=== PATIENT | male | born 2000 | race Caucasian/White ===

== ENCOUNTER 2022-05-21 00:28 | Emergency (ER) | payer OTHER ==
--- NOTE | 2022-05-21 01:07 | ED Physician Documentation ---
PD HPI HEAD INJURY - Stated complaint Stated Complaint: HEAD INJ - Chief complaint Chief Complaint: Trauma Hd/Nk - History obtained from History obtained from: Patient - History of Present Illness Mechanism of head injury: Blow Where head injury occurred: Other (GYM) Timing - onset: Today Location of injury: Right, Front Quality of pain: Pain Associated symptoms: Nausea / vomiting, Other (headache is mild. nausea has resolved). No: LOC, AMS, Amnesia, Neck pain, Paresthesias, Seizures, Ear drainage, Nasal drainage Symptoms worsen with: Palpation Contributing factors: No: Anticoagulated Similar symptoms before: Diagnosis (concussion) Recently seen: Not recently seen - Additional information Additional information: 21-year-old Scott Kelly is an [employer] male who was at the gym this evening using a 25 pound dumbbell when his arm collapsed and the dumbbell hit him in the right side of the forehead. He felt dazed had slight nausea and dizziness which has resolved. He did not have LOC. He states that he has mild pain associated with this but that he no longer has nausea or dizziness. He has had 1 prior concussion in high school that resulted in a brief period of ataxia. Review of Systems Constitutional: denies: Fever Eyes: denies: Decreased vision Ears: denies: Ear pain Nose: denies: Rhinorrhea / runny nose, Congestion Throat: denies: Sore throat Cardiac: denies: Chest pain / pressure Respiratory: denies: Dyspnea, Cough GI: reports: Nausea (resolved). denies: Abdominal Pain, Vomiting, Constipation, Diarrhea : denies: Dysuria, Frequency Skin: denies: Rash Musculoskeletal: denies: Neck pain, Back pain, Extremity pain Neurologic: denies: Generalized weakness, Focal weakness, Numbness PD PAST MEDICAL HISTORY - Present Medications Home Medications: Ambulatory Orders Medication Instructions Recorded Confirmed No Known Home Medications 05/21/22 05/21/22 - Allergies Allergies/Adverse Reactions: Allergies Allergy/AdvReac Type Severity Reaction Status Date / Time No Known Drug Allergies Allergy Verified 05/21/22 00:36 PD ED PE NORMAL - Vitals Vital signs reviewed: Yes (hypertensive mild ) - General General: Alert and oriented X 3, No acute distress, Well developed/nourished - HEENT HEENT: PERRL, EOMI, Other (There is swelling and ecchymosis to the right bahai without crepitance or step-off. Area is mildly tender. There is no laceration to the skin.) - Neck Neck: Supple, no meningeal sign, No bony TTP - Cardiac Cardiac: RRR, No murmur - Respiratory Respiratory: No respiratory distress, Clear bilaterally - Derm Derm: Normal color, No rash - Extremities Extremities: No deformity, Normal ROM s pain, No edema - Neuro Neuro: Alert and oriented X 3, No motor deficit, No sensory deficit, Normal speech Eye Opening: Spontaneous Motor: Obeys Commands Verbal: Oriented GCS Score: 15 - Psych Psych: Normal mood, Normal affect Results - Vitals Vitals: Vital Signs - 24 hr 05/21/22 00:30 Temperature 36.0 C L Heart Rate 87 Respiratory 16 Rate Blood Pressure 144/72 H O2 Saturation 98 Oxygen O2 Source Room air PD Medical Decision Making - ED course Complexity details: considered differential, d/w patient ED course: 21-year-old male with a contusion to the right side of his forehead has symptoms and course consistent with a mild concussion. He has resolved his symptoms and imaging is not indicated. The patient is administered instructions on aftercare for concussion. Departure - Departure Disposition: 01 Home, Self Care Clinical Impression: Concussion Qualifiers: Encounter type: initial encounter Loss of consciousness presence/duration: without LOC Qualified Code(s): S06.0X0A - Concussion without loss of consciousness, initial encounter Condition: Stable Instructions: [facility] Comments: Scott, today it looks like you have had a concussion and this looks like a mild concussion. Our expectation is complete recovery within 7 to 10 days. I left some instructions of things to watch for in the next 24 hours. An important feature of head injury is to not have a second injury while you are recovering from this injury. This usually is in the range of 3 to 4 weeks.
[2022-05-21 01:24] VITALS: BP 131/71
== END 2022-05-21 01:24 | disposition home or self-care (01) ==
LOC: ED 00:28
DX: S06.0X0A Concussion without loss of consciousness, initial encounter (principal); W22.8XXA Striking against or struck by other objects, initial encounter; Y93.B3 Activity, free weights; Y92.39 Other specified sports and athletic area as the place of occurrence of the external cause
CPT/HCPCS: 99281; 99282